=== PATIENT | female | born 1955 | race Two or more races ===

== ENCOUNTER 2024-05-07 10:51 | Emergency (ER) | payer OTHER ==
[~2024-05-07] VITALS: Ht 165.1 cm; Wt 57.2 kg
[~2024-05-07 10:51] MED LIST: ACTONEL75 MG
== END 2024-05-07 17:36 | disposition home or self-care (01) ==
LOC: ER 10:52
DX: R53.81 Other malaise (principal); F03.90 Unspecified dementia, unspecified severity, without behavioral disturbance, psychotic disturbance, mood disturbance, and anxiety; Z91.041 Radiographic dye allergy status